=== PATIENT | female | born 1995 | race Caucasian/White ===

== ENCOUNTER 2017-05-21 18:37 | Emergency (ER) | payer OTHER ==
[~2017-05-21] VITALS: Ht 162.6 cm; Wt 54.0 kg
[~2017-05-21 18:37] MED LIST: CHOL400T10 PO; CYAN50TA PO; DIME240C2 PO; ONDA4TAB35 PO; RANI150T9 PO; SUCR1TAB56 PO
[2017-05-21 18:41] VITALS: Ht 162.6 cm; Wt 54.0 kg
[2017-05-21] MEDS ORDERED: LIDOCAINE/MYLANTA 40 ML BTL PO ONE (19:30)
[2017-05-21] MEDS ORDERED: OMEP20CA16 PO (19:43)
--- NOTE | 2017-05-21 20:02 | ERD ---
ER Documentation Chief Complaint Chief Complaint abd pain x 3 weeks after eating. +nausea "pain won't go away HPI 22-year-old female with a history of multiple sclerosis presents with a chief complaint of generalized versus upper abdominal pain 3 weeks. Abdominal pain currently rated as 4 out of 10. Worse after eating. Much worse after she eats spicy foods. Not worse at any certain time of the day. Hurts after every meal. States that the pain is intermittent. Has had similar symptoms in the past that has resolved with GI cocktail. Last symptoms were 1 year ago. Patient received other medications from PCP that she took a couple times without relief. Associated with constipation and diarrhea at times. Constipation has been a chronic problem and has not changed symptomatically. Able to pass stool. No specific characteristics given. Denies fever, cough, nausea, vomiting. Patient has no other complaints and describes no other associated manifestations. ROS All systems reviewed and are negative except as per history of present illness. Medications Home Meds Active Scripts Omeprazole* (Omeprazole*) 20 Mg Capsule., 20 MG PO BID, #20 Prov:TRAN PIERRE PA-C 05/21/17 Ranitidine Hcl* (Zantac*) 150 Mg Tablet, 150 MG PO BID, #60 TAB Prov:RONNA TRAN DO 03/05/16 Ondansetron Hcl* (Zofran* ODT) 4 mg -ODT Tab.disper, 4 MG PO Q6 Y for NAUSEA AND /OR VOMITING, #10 TAB Prov:JACINTA ERWIN 08/04/15 Sucralfate* (Carafate*) 1 Gm Tab, 1 GM PO QID, #60 TAB Prov:JACINTA ERWIN 08/04/15 Reported Medications Cyanocobalamin* (Vitamin B-12*) 50 Mcg Tablet, 50 MCG PO DAILY, TAB 03/05/16 Cholecalciferol* (Vitamin D*) 400 Unit Tablet, 400 UNIT PO DAILY, TAB 03/05/16 Dimethyl Fumarate (Tecfidera) 240 Mg Capsule., 240 MG PO BID, CAP 03/05/16 Allergies Allergies: Coded Allergies: No Known Allergy (Unverified , 05/21/17) PMhx/Soc History of Surgery: Yes (left ovary removed 5 years ago) Anesthesia Reaction: No Hx Neurological Disorder: No Hx Respiratory Disorders: No Hx Cardiac Disorders: Yes (anemia ) Hx Psychiatric Problems: No Hx 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 Neck: Full range of motion..~ No meningismus. Resp: Clear to auscultation bilaterally Cardio: Regular rate and rhythm, no murmurs Abd: Soft, non tender, non distended. Normal bowel sounds. No masses palpated Skin: No petechiae or rashes Back: No midline or flank tenderness Ext: No cyanosis, or edema Neur: Awake and alert Psych: Normal Mood and Affect Results 24 hrs Current Medications Medications (Trade) Dose Ordered Sig/Licha Route PRN Reason Start Time Stop Time Status Last Admin Dose Admin Miscellaneous Medication (Gi Cocktail (2)) 40 ml ONCE ONCE PO 05/21/17 19:30 05/21/17 19:31 DC 05/21/17 19:26 Procedures/MDM 22-year-old female with history of multiple sclerosis presents with chief complaints of generalized versus upper abdominal pain 3 weeks. Similar symptoms in the past relieve a GI cocktail. GI cocktail was given today with relief of symptoms. Patient's pain increases after eating. No tenderness palpation. Signs and symptoms are most consistent with gastric versus duodenal ulcer versus irritable bowel syndrome. Patient will be prescribed omeprazole. I have instructed her to follow-up with PCP within the next 2-3 days. States that she has an appointment tomorrow. I have spoke with the patient regarding their condition and future management. They have verbally responded that they understand their status and treatment plan. The patients vitals are stable, and their current condition is appropriate for discharge. The patient will be given discharge instructions with return precautions. Departure Diagnosis: Primary Impression: Abdominal pain Abdominal location: generalized Qualified Code: R10.84 - Generalized abdominal pain Condition: Stable Patient Instructions: When Your Child Has a Gastric or Duodenal Ulcer Additional Instructions: Follow up with your PCP within the next 1-3 days for a more thorough evaluation and a possible referral to a specialist. Return the the emergency department immediately if symptoms worsen or change. If you have any questions regarding medications, ask your pharmacist or us before you leave. If any adverse reactions occur while taking your medications, discontinue the treatment and return to the emergency department immediately. Take your medications as directed, and complete the entire course of treatment. TRAN PIERRE PA-C May 21, 2017 20:02
== END 2017-05-21 19:59 | disposition home or self-care (01) ==
LOC: FTE 18:37
DX: R10.84 Generalized abdominal pain (principal)
CPT/HCPCS: Z7502; Z7610; 99283

== ENCOUNTER 2017-11-10 20:51 | Emergency (ER) | END 2017-11-10 23:57 | disposition home or self-care (01) ==

== ENCOUNTER 2017-11-28 12:52 | Emergency (ER) | END 2017-11-28 16:14 | disposition home or self-care (01) ==

== ENCOUNTER 2017-12-22 23:07 | Emergency (ER) | END 2017-12-23 02:10 | disposition home or self-care (01) ==

== ENCOUNTER 2018-01-20 20:11 | Emergency (ER) | END 2018-01-20 22:23 | disposition home or self-care (01) ==

== ENCOUNTER 2018-05-14 16:30 | Inpatient (IN) | END 2018-05-18 17:40 | disposition home or self-care (01) | DRG 832 ==

== ENCOUNTER 2018-06-10 01:20 | Inpatient (IN) | END 2018-06-13 17:41 | disposition home or self-care (01) | DRG 787 ==

== ENCOUNTER 2018-11-11 18:41 | Emergency (ER) | payer OTHER ==
[~2018-11-11] VITALS: Ht 160 cm; Wt 53.1 kg
[~2018-11-11 18:41] MED LIST changes: +ACET500C5 PO; -DIME240C2 PO; +OMEP20CA16 PO; -ONDA4TAB35 PO; -RANI150T9 PO; -SUCR1TAB56 PO
[2018-11-11 18:51] VITALS: Ht 160 cm; Wt 53.1 kg
[2018-11-11] MEDS ORDERED: DEXAMETHASONE 10 MG/ML 1 ML INJ IV ONE (19:30)
[2018-11-11] MEDS ORDERED: ACETAMINOPHEN 500 MG TAB PO STA (20:30)
--- NOTE | 2018-11-11 20:36 | ERD ---
ER Documentation Chief Complaint Chief Complaint eye pain/burning sensation left eye x 6 weeks, worse today HPI Patient is a 23-year-old female with past medical history of multiple sclerosis, presents the ER for concerns of multiple sclerosis flareup. Patient states that she is having trouble seeing out of her left eye. She states she has had difficulty seeing out of her left eye for the last 6 weeks however today became worse. Patient states that she does see a neurologist Dr. Chuck Vazquez at [facility]. She states that she was recently started on Ocrevus infusions however she does not feel that it is helping. Patient states she would like steroids or she feels like this helps her the most. Patient states she cannot take Solu-Medrol because it causes her to have a rash however she can take Decadron without any difficulty. Patient denies any fevers, chills, shortness of breath, chest pain, nausea, vomiting abdominal pain or diarrhea. Of note, patient states that she already has vision loss out of her right eye. ROS All systems reviewed and are negative except as per history of present illness. Medications Home Meds Active Scripts Acetaminophen* (Tylophen*) 500 Mg Capsule, 1 CAP PO Q6H PRN for PAIN AND OR ELEVATED TEMP, #30 CAP Prov:CHELSIE MARLEY PA-C 11/28/17 Omeprazole* (Omeprazole*) 20 Mg Capsule., 20 MG PO BID, #20 Prov:TRAN PIERRE PA-C 05/21/17 Reported Medications Cyanocobalamin* (Vitamin B-12*) 50 Mcg Tablet, 50 MCG PO DAILY, TAB 03/05/16 Cholecalciferol* (Vitamin D*) 400 Unit Tablet, 400 UNIT PO DAILY, TAB 03/05/16 Allergies Allergies: Coded Allergies: latex (Verified Allergy, Intermediate, ITCHING, 06/10/18) methylprednisolone (Verified Allergy, Unknown, 11/11/18) PMhx/Soc History of Surgery: Yes (left ovary removed 5 years ago) Anesthesia Reaction: No Hx Neurological Disorder: No Hx Respiratory Disorders: No Hx Cardiac Disorders: Yes (anemia ) Hx Psychiatric Problems: No 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 Appears in no acute distress. Speaking in full sentences. HEAD: Normocephalic, atraumatic. EYES: Pupils are equally reactive bilaterally. EOMs grossly intact. No pain with EOMs. No conjunctival erythema. ENT: Moist mucous membranes. No uvula deviation. No kissing tonsils. NECK: Supple. No meningismus. Normal range of motion of the neck. LUNG: Clear to auscultation bilaterally. No rhonchi, wheezing, rales or coarse breath sounds. HEART: Regular rate and rhythm. No murmurs, rubs or gallops. EXTREMITIES: Equal pulses bilaterally. No peripheral clubbing, cyanosis or edema. No unilateral leg swelling. NEUROLOGIC: Alert and oriented. Moving all four extremities without any difficulty. Normal speech. Steady gait. SKIN: Normal color. Warm and dry. No rashes or lesions. Results 24 hrs Current Medications Medications Dose Sig/Licha Start Time Status Last (Trade) Ordered Route PRN Stop Time Admin Dose Reason Admin 12 mg ONCE ONCE 11/11/18 DC 11/11/18 Dexamethasone IV 19:30 19:54 (Decadron) 11/11/18 19:32 1,000 mg ONCE STAT 11/11/18 DC Acetaminophen PO 20:30 (Tylenol 11/11/18 20:33 Tab) Procedures/MDM MEDICAL DECISION MAKING: Patient is a 23-year-old female with history of multiple sclerosis presents ER for concerns of multiple sclerosis flareup. Patient states she had decreased vision out of her left eye however symptoms got worse today. Patient requesting to submit this is typically does help with her symptoms.. Vital signs were reviewed. Patient is afebrile. Patient was not hypoxic. Patient was hemodynamically stable. Case is discussed with supervising physician Dr. Cevallos who agreed that treatment with dexamethasone was appropriate at this time. He advised me to give the patient 12 mg IV dexamethasone. Patient was advised to follow-up with her neurologist Dr. Chuck Vazquez tomorrow morning for further management of his symptoms. DISCHARGE: At this time, patient is stable for discharge and outpatient management. I have instructed the patient to follow-up with his/her primary care physician in 1-2 days. I have discussed with the patient the possibility of needing to see a specialist for further workup and imaging studies if symptoms persist. I have instructed the patient to promptly return to the ER for any new or worsening symptoms including increased pain, fever, nausea, vomiting, weakness or LOC. The patient and/or family expressed understanding of and agreement with this plan. All questions were answered. Home care instructions were provided. Disclaimer: Inadvertent spelling and grammatical errors are likely due to EHR/dictation software use and do not reflect on the overall quality of patient care. Also, please note that the electronic time recorded on this note does not necessarily reflect the actual time of the patient encounter. Departure Diagnosis: Primary Impression: Multiple sclerosis exacerbation Additional Impression: Visual changes Condition: Fair Patient Instructions: Understanding Multiple Sclerosis (MS) Referrals: [facility] YOU HAVE RECEIVED A MEDICAL SCREENING EXAM AND THE RESULTS INDICATE THAT YOU DO NOT HAVE A CONDITION THAT REQUIRES URGENT TREATMENT IN THE EMERGENCY DEPARTMENT. FURTHER EVALUATION AND TREATMENT OF YOUR CONDITION CAN WAIT UNTIL YOU ARE SEEN IN YOUR DOCTORS OFFICE WITHIN THE NEXT 1-2 DAYS. IT IS YOUR RESPONSIBILITY TO MAKE AN APPOINTMENT FOR FOLOW-UP CARE. IF YOU HAVE A PRIMARY DOCTOR --you should call your primary doctor and schedule an appointment IF YOU DO NOT HAVE A PRIMARY DOCTOR YOU CAN CALL OUR PHYSICIAN REFERRAL HOTLINE AT IF YOU CAN NOT AFFORD TO SEE A PHYSICIAN YOU CAN CHOSE FROM THE FOLLOWING [facility] [address] [facility]. [facility] [address] [facility] [facility] [address] [facility]. [facility] [address] [facility] [address] [facility]. [facility]. [address] [facility] [facility] YOU HAVE RECEIVED A MEDICAL SCREENING EXAM AND THE RESULTS INDICATE THAT YOU DO NOT HAVE A CONDITION THAT REQUIRES URGENT TREATMENT IN THE EMERGENCY DEPARTMENT. FURTHER EVALUATION AND TREATMENT OF YOUR CONDITION CAN WAIT UNTIL YOU ARE SEEN IN YOUR DOCTORS OFFICE WITHIN THE NEXT 1-2 DAYS. IT IS YOUR RESPONSIBILITY TO MAKE AN APPOINTMENT FOR FOLOW-UP CARE. IF YOU HAVE A PRIMARY DOCTOR --you should call your primary doctor and schedule and appointment IF YOU DO NOT HAVE A PRIMARY DOCTOR YOU CAN CALL OUR PHYSICIAN REFERRAL HOTLINE AT . IF YOU CAN NOT AFFORD TO SEE A PHYSICIAN YOU CAN CHOSE FROM THE FOLLOWING [facility] INSTITUTIONS: [facility] [address] [place] [address] [facility] [address] [place] [address] [facility] [address] [place] [address] Additional Instructions: Call your neurologist Dr. Chuck Vazquez tomorrow for further management of your symptoms. Call your primary care doctor TOMORROW for an appointment during the next 1-2 days.See the doctor sooner or return here if your condition worsens before your appointment time. JOSEFA CAREY PA-C Nov 11, 2018 20:36
== END 2018-11-11 20:40 | disposition home or self-care (01) ==
LOC: FTE 18:41
DX: G35 Multiple sclerosis (principal); H53.8 Other visual disturbances; Z91.040 Latex allergy status
CPT/HCPCS: 96374; Z7502

== ENCOUNTER 2018-11-12 15:43 | Emergency (ER) | payer OTHER ==
[~2018-11-12] VITALS: Ht 157.5 cm; Wt 52.9 kg
[2018-11-12 16:10] VITALS: Ht 157.5 cm; Wt 52.9 kg
--- NOTE | 2018-11-12 16:13 | EN ---
Date/Time of Note Date/Time of Note DATE: 11/12/18 TIME: 16:12 ER Progress Note ED 3 MSE-patient with history of MS and flare referred/returns for additional IV steroids for persistent/recurrent symptoms GAVI PATINO MD Nov 12, 2018 16:13
[2018-11-12] MEDS ORDERED: DEXAMETHASONE 10 MG/ML 1 ML INJ IV ONE (19:00)
--- NOTE | 2018-11-12 19:50 | ERD ---
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 Reports that she has been receiving Ocrevus through her neurologist, Dr. Chuck Vazquez from [facility] neurology that she does not feel like it is improving her symptoms. States that the reason why she returned to the ED from yesterday's visit was because she started to see a red linear line that is different from yesterday. Denies any chest pain, shortness of breath, nausea, vomiting, diarrhea, neck stiffness, abdominal pain, chest pain, shortness of breath. ROS All systems reviewed and are negative except as per history of present illness. Medications Home Meds Active Scripts Acetaminophen* (Tylophen*) 500 Mg Capsule, 1 CAP PO Q6H PRN for PAIN AND OR ELEVATED TEMP, #30 CAP Prov:CHELSIE MARLEY PA-C 11/28/17 Omeprazole* (Omeprazole*) 20 Mg Capsule., 20 MG PO BID, #20 Prov:TRAN PIERRE PA-C 05/21/17 Reported Medications Cyanocobalamin* (Vitamin B-12*) 50 Mcg Tablet, 50 MCG PO DAILY, TAB 03/05/16 Cholecalciferol* (Vitamin D*) 400 Unit Tablet, 400 UNIT PO DAILY, TAB 03/05/16 Allergies Allergies: Coded Allergies: latex (Verified Allergy, Intermediate, ITCHING, 11/12/18) methylprednisolone (Verified Allergy, Unknown, 11/12/18) PMhx/Soc History of Surgery: Yes (left ovary removed 5 years ago) Anesthesia Reaction: No Hx Neurological Disorder: No Hx Respiratory Disorders: No Hx Cardiac Disorders: Yes (anemia ) Hx Psychiatric Problems: No Hx 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 In no acute distress. Head: Atraumatic, normocephalic. Eyes:Left conjunctiva with injection. No purulent discharge. PERRLA. EOMI ENT: Normal external ear. Ear canal without erythema. Tympanic membrane pearly perez without effusion or bulging. Nasal canal clear with normal turbinates. Moist oropharynx without tonsillar exudates. Non-erythematous pharynx. Uvula midline. No drooling. No trismus. Neck: No cervical midline tenderness. Full range of motion. No meningismus. No cervical lymphadenopathy. No JVD. Resp: Clear to auscultation bilaterally. No wheezing, rhonchi, rales, or crackles. No accessory muscle use. No retractions. Cardio: Regular rate and rhythm. No murmurs, rubs or gallops. Abd: Soft, non tender, non distended. Normal bowel sounds. No palpable masses. No rebound tenderness. No guarding. Negative McBurney's Point. Negative Little's Sign. Skin: Normal skin turgor. No petechiae or rashes Back: No midline tenderness. No CVA tenderness. Ext: No cyanosis, or edema. Distal pulses intact bilaterally. Neur: Awake and alert. Normal gait. Normal coordination. Cranial Nerves II- VII intact. Normal finger to nose. Muscle strength 5/5. Sensation intact. Psych: Normal Mood and Affect Results 24 hrs Current Medications Medications Dose Sig/Licha Start Time Status Last (Trade) Ordered Route PRN Stop Time Admin Dose Reason Admin 10 mg ONCE ONCE 11/12/18 DC 11/12/18 Dexamethasone IV 19:00 18:53 (Decadron) 11/12/18 19:02 Procedures/MDM 23-year-old female patient with past medical history of right optic neuritis and multiple sclerosis presents to the ED complaining of worsening left eye blurry vision and pain that started yesterday. Patient is afebrile and nontoxic- appearing. Patient was given IM Decadron here in the ED with improvement of her eye pain. States that she can open her eyes significantly better and pain is relieved. Patient reports that she prefers Decadron instead of Solu-medrol because it doesn't work for her symptoms. This was discussed with Dr. Mcintyre and we agreed to give patient Decadron. Right 20/200 Left 20/70 Bilateral 20/50 Dr. Stevie Nguyen, neurologist was consulted from [facility] who works with Dr. Chuck Vazquez. I told the neurologist relationship mgr that patient is in route to [facility] emergency department for further evaluation by him for optic neuritis. He accepted the consultation for patient. Reports that she does have an appointment with Dr. Vazquez tomorrow at 10:30 AM however I strictly instructed her to follow-up with [facility] emergency department immediately right after disch arge here from [facility]. Patient was comfortable with this plan. Patient agreed to the plan and states that she will go to [facility] emergency department immediately. Discussed with my supervising physician, Dr. Cevallos agreed with the management and discharge plan. Mother will be driving patient. Diagnosis: Multiple Sclerosis Instructed patient to return to the ED sooner for any worsening symptoms. Patient's questions were answered. Patient is hemodynamically stable. Patient understood and agreed with discharge plan. Patient discharged stable. Disclaimer: Inadvertent spelling and grammatical errors are likely due to EHR/dictation software use and do not reflect on the overall quality of patient care. Also, please note that the electronic time recorded on this note does not necessarily reflect the actual time of the patient encounter. Departure Diagnosis: Primary Impression: Multiple sclerosis Condition: Stable Patient Instructions: Multiple Sclerosis Referrals: [facility] YOU HAVE RECEIVED A MEDICAL SCREENING EXAM AND THE RESULTS INDICATE THAT YOU DO NOT HAVE A CONDITION THAT REQUIRES URGENT TREATMENT IN THE EMERGENCY DEPARTMENT. FURTHER EVALUATION AND TREATMENT OF YOUR CONDITION CAN WAIT UNTIL YOU ARE SEEN IN YOUR DOCTORS OFFICE WITHIN THE NEXT 1-2 DAYS. IT IS YOUR RESPONSIBILITY TO MAKE AN APPOINTMENT FOR FOLOW-UP CARE. IF YOU HAVE A PRIMARY DOCTOR --you should call your primary doctor and schedule an appointment IF YOU DO NOT HAVE A PRIMARY DOCTOR YOU CAN CALL OUR PHYSICIAN REFERRAL HOTLINE AT IF YOU CAN NOT AFFORD TO SEE A PHYSICIAN YOU CAN CHOSE FROM THE FOLLOWING [facility] CLINICS [facility] [address] [facility] [address] [facility] [address] [facility] [facility] [address] [facility] [address] [facility]. [facility] [address] [facility]. [facility] YOU HAVE RECEIVED A MEDICAL SCREENING EXAM AND THE RESULTS INDICATE THAT YOU DO NOT HAVE A CONDITION THAT REQUIRES URGENT TREATMENT IN THE EMERGENCY DEPARTMENT. FURTHER EVALUATION AND TREATMENT OF YOUR CONDITION CAN WAIT UNTIL YOU ARE SEEN IN YOUR DOCTORS OFFICE WITHIN THE NEXT 1-2 DAYS. IT IS YOUR RESPONSIBILITY TO MAKE AN APPOINTMENT FOR FOLOW-UP CARE. IF YOU HAVE A PRIMARY DOCTOR --you should call your primary doctor and schedule and appointment IF YOU DO NOT HAVE A PRIMARY DOCTOR YOU CAN CALL OUR PHYSICIAN REFERRAL HOTLINE AT . IF YOU CAN NOT AFFORD TO SEE A PHYSICIAN YOU CAN CHOSE FROM THE FOLLOWING [facility] INSTITUTIONS: [facility] [address] [place] [address] [facility] [address] [place], [place] [id number] [place] [address] [address] [place] [address] [facility] Hours: Mon - Fri 9:00 AM - 5:00 PM Additional Instructions: You were given 10 mg IM of Decadron (Dexamethasone) here at [facility] at 7:00PM. PLEASE GO TO [facility] EMERGENCY ROOM IMMEDIATELY UPON GETTING DISCHARGE TO CONSULT [facility] NEUROLOGY DEPARTMENT FOR FURTHER EVALUATION AND TREATMENT FOR YOUR BLURRED VISION. Llame al doctor MAANA y jennifer tammy SUMMER PARA DENTRO DE 2-3 PHELAN.Dgale a la secretaria que nosotros le instruimos hacer esta summer.Avise o llame si olson condicin se empeora antes de la summer. Regresa aqui si peor o no mejor. ANDERS EARL PA-C Nov 12, 2018 19:50
== END 2018-11-12 19:37 | disposition home or self-care (01) ==
LOC: FTE 15:43
DX: G35 Multiple sclerosis (principal)
CPT/HCPCS: 96374; J1100